=== PATIENT | female | born 1960 | race Caucasian/White ===

== ENCOUNTER → 2016-11-07 | Outpatient (CLI) | payer BC ==
[~2016-11-07] MED LIST: GUMMI BEAR MULTIVITA PO; IBUPROFEN400 MG PO; MAXZIDE-25 PO; METFORMIN HCL500 MG PO; METOPROLOL SUCC25 MG PO; NITROSTAT0.3 MG SL; OMEPRAZOLE20 M1 PO; PERCOCET1 TA1 PO; PROAIR HFA IN; VISTARIL25 MG PO
--- NOTE | 2016-11-07 17:38 | DIAGNOSTIC IMAGING REPORT ---
PROCEDURE: XR CHEST 2 VIEW INDICATION: BRONCHITIS TECHNIQUE: PA and lateral views. COMPARISON: Chest 07/17/2016 and 01/03/2016 FINDINGS: Lungs are clear. Heart and mediastinum are normal. Thorax is normal. IMPRESSION: 1. Negative chest.
== END ==
LOC: XR SRH 17:21
DX: J40 Bronchitis, not specified as acute or chronic (principal)

== ENCOUNTER 2017-03-24 13:24 | Emergency (ER) | payer BC ==
--- NOTE | 2017-03-24 15:25 | DIAGNOSTIC IMAGING REPORT ---
PROCEDURE: CT ABD/PELVIS WITH CONTRAST CLINICAL INDICATION: ABDOMINAL PAIN TECHNIQUE: 125 ml. of Isovue 300 were injected intravenously and axial images were obtained of the entire abdomen and pelvis with sagittal and coronal reformations. COMPARISON: CT abdomen/pelvis 09/25/2016. FINDINGS: ABDOMEN: Lung base are clear. Heart size is normal. Hepatic steatosis. Cholecystectomy. Pancreas, spleen and adrenal glands are normal. Small bilateral renal cysts. Mild atherosclerosis. Normal appendix. Nonspecific bowel gas pattern. PELVIS: Mild mid sigmoid diverticulosis with wall thickening, mild adjacent inflammatory changes and small amount of free fluid consistent with diverticulitis. There is no abscess or free air. Hysterectomy. Adnexa and bladder are normal. Mild degenerative changes of the spine. IMPRESSION: 1. Sigmoid diverticulitis. No abscess or free air. 2. Hepatic steatosis 3. Cholecystectomy and hysterectomy E TRIP Hathaway. All CT scans at this facility use dose modulation, iterative reconstruction, and/or weight-based dosing when appropriate to reduce radiation dose to as low as reasonably achievable.
--- NOTE | 2017-03-24 15:35 | ED ORDER SUMMARY ---
..... Patient: SANGITA BEAVERS OrderSheet [facility] VisitID: [id number] [place] [address] 56y, F Registration Date/Time: 03/24/2017 ORDER SHEET Weight: 99.7 kg (stated) Allergies: Amoxicillin, Codeine, Latex, Levaquin, Novocain, Reglan, Simvastatin, Lyrica GENERAL ORDERS: UA-Culture if indicated Urgent (13:52 03/24/2017 Roberto R.N. per protocol) (Ack 13:53 PWeiler ER Tech1) (14:04 CHernandez R.N.) CBC w Diff Urgent (13:54 03/24/2017 EKoroleva P.A.-C) (Ack 13:55 PWeiler ER Tech1) (14:04 CHernandez R.N.) CMP Urgent (13:54 03/24/2017 EKoroleva P.A.-C) (Ack 13:55 PWeiler ER Tech1) (14:04 CHernandez R.N.) Lipase Urgent (13:54 03/24/2017 EKoroleva P.A.-C) (Ack 13:55 PWeiler ER Tech1) (14:04 CHernandez R.N.) CT Abd/Pel w Cont (Yes) (see lab) Urgent (14:35 03/24/2017 EKoroleva P.A.-C) (Ack 14:55 PWeiler ER Tech1) (14:59 PWeiler ER Tech1) MEDICATION ORDERS: Metronidazole PO 500 mg (NOW) (15:25 03/24/2017 EKoroleva P.A.-C) (Ack 15:27 CHernandez R.N.) (15:32 CHernandez R.N.) IV FLUIDS: IV NS : initial bolus 1000 mL (1000 mL/hr), then 1000 mL/hr for X1 (NOW); Piero (13:53 03/24/2017 EKoroleva P.A.-C) (Ack 14:09 CHernandez R.N.) (14:18 CHernandez R.N.) Zofran IV 8 mg (NOW) (13:53 03/24/2017 Dino Rapp) ([facility] 14:09 Marla Arceo) (14:20 Marla Arceo) ORDER SHEET NOTES: [Electronically signed by Elba Hathaway P.A.-C (15:46 03/24/2017)] [Electronically signed by Roderick Shine R.N. (15:53 03/24/2017)] [Electronically locked/signed by Roderick Shine R.N. (15:53 03/24/2017)]
--- NOTE | 2017-03-24 15:35 | ED NURSING NOTES ---
Clinical Report - Nurses [facility] [address] [place] [address] 03/24/2017 13:25 Patient: SANGITA BEAVERS TRIAGE Triage time 13:43 Mar 24 2017. Acuity: LEVEL 3. Chief Complaint: ABDOMINAL PAIN. 13:43 03/24/17. 13:43 03/24/17. Alert. ( Pt states she went to the walk in clinic on Friday, pt dx with UTI, started on abx. Presents today as pain is getting worse.). SEPSIS SCREEN: Sepsis Screen. Negative (no infection suspected/documented). --13:51 Rodo Willingham R.N. 13:44 03/24/17. BP: 147/56. HR: 82. RR: 18. O2 saturation: 99% on room air. Temp: 98.2 F (oral). Pain level now: 04/07. --13:51 Rodo Willingham R.N. Weight: 99.7 kg stated. Height/Length: 61 inches Per Patient. BMI: 41.6. --13:47 Rodo Willingham R.N. Medications Albuterol Sulfate Inhalation (Nebulization Solution (2.5 MG/3ML) 0.083%) 1 unit dose, PRN. --13:50 Rodo Willingham R.N. Combivent Respimat Inhalation, PRN. MetFORMIN HCl Oral 500 mg, daily. Metoprolol Tartrate Oral 50 mg, daiily. Triamterene-HCTZ Oral (Tablet 37.5-25 mg) 1 tablet, daily. --13:50 Rodo Willingham R.N. Sulfamethoxazole-TMP DS Oral (Tablet 800-160 mg) 1 tablet, two times a day. --13:50 Rodo Willingham R.N. Nitrostat Sublingual 0.4 mg, as needed. --13:55 Rodo Willingham R.N. The following entry was struck by Rodo Willingham R.N., 13:54 (03/24/17) Reason - other. <<STRICKEN ENTRY-- Nitroglycerin Sublingual 0.4 mg, PRN. --13:50 Rodo Willingham R.N. --END STRIKE>> The following entry was struck and corrected by Rodo Willingham R.N., 13:53 (03/24/17) Reason for correction - other(correction). <<STRICKEN ENTRY-- Metoprolol Tartrate Oral 50 mg. --13:50 Rodo Willingham R.N. --END STRIKE>>. Medication/allergy information source: the patient. --13:51 Rodo Willingham R.N. Allergies Amoxicillin. ("breathing problems") Codeine. Latex. Levaquin. Novocain. Reglan.(hives) (body rash, anxiety) --13:48 Rodo Willingham R.N. Simvastatin. --13:56 Rodo Willingham R.N. Lyrica. --13:56 Rodo Willingham R.N. The following entry was struck and corrected by Rodo Willingham R.N., 13:56 (03/24/17) Reason for correction - other(correction). <<STRICKEN ENTRY-- Reglan. --13:48 Rodo Willingham R.N. --END STRIKE>>. History Arrived by private vehicle. Historian: patient. Primary physician (MISBAH). 13:43 03/24/17. ( Friday). No constipation. Treatment [employer]: (Sulfameth [id number]). PAST MEDICAL HX: Immunizations not up to date. SOCIAL HX: Never smoker. No alcohol use or drug use. No recent travel. No infectious disease exposure. No known contact with a sick individual. ABUSE ASSESSMENT: No report of abuse. FALL RISK ASSESSMENT: Fall risk assessment completed. No fall risk identified. NUTRITIONAL RISK ASSESSMENT: The nutritional risk assessment revealed no deficiencies. FUNCTIONAL ASSESSMENT: Functional assessment: no impairments noted. LEARNING NEEDS ASSESSMENT: The learning needs assessment revealed no barriers. SKIN INTEGRITY ASSESSMENT: Skin integrity risk assessment completed. No skin integrity risk identified. --13:51 Rodo Willingham R.N. PROBLEMS: Gastroenteritis. Diverticulitis. Endometriosis. Diabetes Mellitus Type 2. Asthma. Angina. --13:51 Rodo Willingham R.N. ADDITIONAL SURGERIES: Hysterectomy. Previous Abdominal Surgery. --13:51 Rodo Willingham R.N. Assessment 13:43 03/24/17. --13:51 Rodo Willingham R.N. Interventions 13:43 03/24/17. 13:43 03/24/17. ID and allergy band on patient. To treatment room. --13:51 Rodo Willingham R.N. PHYSICAL ASSESSMENT 13:43 03/24/17. Ambulatory to room. GENERAL / NEURO / PSYCH: Alert. Oriented X 4. Appears in pain. RESPIRATORY: Respirations not labored. CVS: Capillary refill less than 2 seconds. SKIN: Skin is warm and dry. --13:51 Rodo Willingham R.N. Ambulatory to room. GENERAL / NEURO / PSYCH: Alert. Oriented X 4. Appears in no acute distress. HEENT: Mucous membranes are pink. RESPIRATORY: Respirations not labored. Breath sounds within normal limits. CVS: Capillary refill less than 2 seconds. GI / : The patient has had nausea. Obesity. Abdomen soft. Abdominal tenderness in the lower abdomen. SKIN: Skin is warm and dry. --14:07 Roderick Shine R.N. NURSING PROGRESS NOTES 13:51 03/24/17. The plan of care for this patient has been created. Patient gowned. Head of bed elevated. Two patient identifiers checked. Call light placed in reach. Side rails up x 2. Bed placed in lowest position. Brakes of bed on. Patient ready for evaluation- chart flagged and notification provided. --13:51 Rodo Willingham R.N. 13:52 03/24/17. Patient ID band checked for patient name and birthdate. Clean catch urine collected with return of yellow-colored urine; sample sent to lab for urinalysis and culture. Specimen labeled in the presence of the patient. --13:52 Rodo Willingham R.N. 14:02 03/24/2017 Site #1 started via IV in the left antecubital space with an 20g angiocath; one attempt. Blood drawn: rainbow set. Labeled in the presence of the patient and sent to the lab. Saline lock flushed with 10 mL saline. --14:07 Roderick Shine R.N. 14:13 03/24/2017 Started IV Fluids IV NS (Saline); bolus of 1000 mL over 1 hour(s) via site #1 via IV pump. Allergies verified and confirmed 5 rights. IV patency established. IV site checked: no pain, redness, or swelling. IV flushed thoroughly pre- and post-medication administration. --14:18 Roderick Shine R.N. 14:20 03/24/2017 Zofran (Ondansetron HCl) IVP 8 mg given over 3 minute(s) via site #1. Allergies verified and confirmed 5 rights. IV patency established. IV site checked: no pain, redness, or swelling. IV flushed thoroughly pre- and post-medication administration. IVP given by RN. --14:20 Roderick Shine R.N. 15:20 03/24/17. BP: 113/47. HR: 82. RR: 16. O2 saturation: 100%. --15:22 Roderick Shine R.N. Reassessment after fluids administered. She is calm. Overall patient status- she states feels better. GI / : Abdomen soft. Abdominal tenderness in the lower abdomen. Bowel sounds within normal limits. SKIN: Skin is warm and dry. Skin color within normal limits. --15:22 Roderick Shine R.N. 15:28 03/24/2017 IV Fluids IV NS Discontinued: bag #1 infused. Total amount infused: 1000 mL. IV patency established. IV site checked: no pain, redness, or swelling. IV flushed thoroughly. --15:28 Roderick Shine R.N. 15:29 03/24/2017 Started bag #2 1000 mL IV Fluids IV NS (Saline); at 1000 mL/hr over 1 hour(s) via site #1 via IV pump. Allergies verified and confirmed 5 rights. IV patency established. IV site checked: no pain, redness, or swelling. IV flushed thoroughly pre- and post-medication administration. --15:29 Roderick Shine R.N. 15:32 03/24/2017 Metronidazole PO Tablets 500 mg given. Allergies verified and confirmed 5 rights. --15:32 Roderick Shine R.N. 15:44 03/24/2017 IV Fluids IV NS Discontinued: bag #2 STOPPED upon discharge. Total amount infused: 100 mL. IV patency established. IV site checked: no pain, redness, or swelling. IV flushed thoroughly. --15:49 Roderick Shine R.N. 15:49 03/24/2017 Site #1 removed upon discharge. Pressure dressing applied. --15:49 Roderick Shine R.N. DISPOSITION / DISCHARGE Condition at departure: improved. No learning barriers present. Discharge instructions provided and reviewed with the patient. Reviewed medication(s) side effects, precautions, dosing and course information. Prescription(s) given to the patient. Reviewed referral to a primary care physician for followup. Work note given. Patient verbalized understanding. Written instructions provided in [place]. The patient was discharged home. She left the Emergency Department ambulatory and via private vehicle. Patient driving. --15:53 Roderick Shine R.N. 15:48 03/24/17. BP: 115/72. HR: 83. RR: 15. O2 saturation: 100%. Temp: 98.1 F (oral). Pain level now: 01/06. --15:53 Roderick Shine R.N. Departure time: 15:53. --15:53 Roderick Shine R.N. Locked/Released at 03/24/2017 15:53 by Roderick Shine R.N.
--- NOTE | 2017-03-24 15:35 | ED CLINICAL REPORT ---
Clinical Report - Physicians/Mid Levels [facility] [address] [place] [address] 03/24/2017 13:25 Patient: SANGITA BEAVERS Time Seen: 1400Jun 2016. Arrived- By private vehicle. Historian- patient. HISTORY OF PRESENT ILLNESS Chief Complaint: ABDOMINAL PAIN. This started 5 days. (Patient presents abdominal pain in the last 5 days, some dysuria, was taking O's occasional [id number], was seen of the 10 minute clinic and started on Bactrim, her pain has persisted. Denies fevers or chills. Denies any constipation or diarrhea. Denies any Flank pain. Patient denies any emesis.). REVIEW OF SYSTEMS No constipation, black stools, difficulty with urination, headache or chest pain. All systems otherwise negative, except as recorded above. PAST HISTORY Problems: Gastroenteritis. Endometriosis. Hypertension. Diabetes Mellitus Type 2. Asthma. Angina. Additional Surgeries: Hysterectomy. Previous Abdominal Surgery. Medications: Nitrostat Sublingual 0.4 mg, as needed. Sulfamethoxazole-TMP DS Oral (Tablet 800-160 mg) 1 tablet, two times a day. Combivent Respimat Inhalation, PRN. MetFORMIN HCl Oral 500 mg, daily. Metoprolol Tartrate Oral 50 mg, daiily. Triamterene-HCTZ Oral (Tablet 37.5-25 mg) 1 tablet, daily. Albuterol Sulfate Inhalation (Nebulization Solution (2.5 MG/3ML) 0.083%) 1 unit dose, PRN. Allergies: Amoxicillin. ("breathing problems") Codeine. Latex. Levaquin. Lyrica. Novocain. Reglan.(hives) (body rash, anxiety) Simvastatin. ADDITIONAL NOTES The nursing notes have been reviewed. PHYSICAL EXAM Vital Signs: 03/24/2017 13:44 BP: 147/56. HR: 82. RR: 18. O2 saturation: 99%. Temp: 98.2 F. Pain level now: 7/10. Appearance: Alert. Eyes: Eyes normal inspection. ENT: Ears normal. Nose normal. No pharyngeal erythema. Neck: No lymphadenopathy or thyromegaly. CVS: Heart sounds normal. Respiratory: No respiratory distress. Breath sounds normal. No decreased air movement. Abdomen: Tenderness in the suprapubic area. No organomegaly. No mass. No obesity. Back: Normal inspection. No CVA tenderness. Skin: Skin warm. Neuro: Oriented X 3. LABS, X-RAYS, AND EKG Abdominal CT: IMPRESSION: 1. Sigmoid diverticulitis. No abscess or free air. 2. Hepatic steatosis 3. Cholecystectomy and hysterectomy E TRIP Hathaway. All CT scans at this facility use dose modulation, iterative reconstruction, and/or weight-based dosing when appropriate to reduce radiation dose to as low as reasonably achievable. Electronically Final signed by:Matthew Oviedo MD 03/24/2017 3:24:42 PM. Laboratory Tests: UA-Culture if indicated: (LUZ MARIA: 03/24/2017 13:48) ( [facility] 03/24/2017 14:17) Final results Test Result Flag Units (Reference) URINE COLOR YELLOW URINE APPEARANCE CLEAR URINE GLUCOSE NEGATIVE (NEGATIVE) URINE BILIRUBIN NEGATIVE (NEGATIVE) URINE KETONE NEGATIVE (NEGATIVE) URINE SPECIFIC GRAVITY 1.020 (1.010-1.030) URINE PH 7.0 (5.0-8.0) URINE PROTEIN NEGATIVE (NEGATIVE) URINE UROBILINOGEN 0.2 EU/dL (0.2-1.0) URINE NITRITE NEGATIVE (NEGATIVE) URINE BLOOD NEGATIVE (NEGATIVE) URINE LEUK ESTERASE NEGATIVE (NEGATIVE) URINE RBC NONE SEEN rbc/hpf (0-1) URINE WBC RARE wbc/hpf (0-1) URINE EPITHELIAL CELLS 0-1 EPI/hpf (0-5) URINE BACTERIA NONE SEEN (NONE SEEN) URINE COMMENT CULT NOT INDICATED URINE CULTURES ARE SET-UP BASED ON THE FOLLOWING CRITERIA:POSITIVE NITRITEPOSITIVE LEUKOCYTE ESTERASEGREATER THAN 10 WHITE BLOOD CELLSMODERATE (2+) OR GREATER BACTERIA CBC w Diff: (LUZ MARIA: 03/24/2017 14:00) ( [facility] 03/24/2017 14:10) Final results Test Result Flag Units (Reference) WHITE BLOOD COUNT 15.7 H K/uL (4.5-11.5) RED BLOOD COUNT 4.48 M/uL (4.00-5.20) HEMOGLOBIN 11.6 L gm/dL (12.0-16.0) HEMATOCRIT 34.8 L % (36.0-46.0) MEAN CELL VOLUME 78 L fL (80-100) MEAN CORPUSCULAR HGB 26 pg (26-34) MEAN CORPUSCULAR HGB CONC 33 g/dL (31-37) RED CELL DISTRIBUTION WIDTH 14.2 % (11.6-14.8) PLATELET COUNT 282 K/uL (150-400) NEUTROPHIL % 80.8 H % (50-75) LYMPH % 13.9 L % (25-40) MONO % 4.5 % (3-14) EOSINOPHIL % 0.5 % (0-4) BASOPHIL % 0.3 % (0-2) CMP: (LUZ MARIA: 03/24/2017 14:00) ( MsgRcvd 03/24/2017 14:28) Final results Test Result Flag Units (Reference) GLUCOSE 106 mg/dL (70-110) BUN 11 mg/dL (7-18) CREATININE 0.8 mg/dL (0.6-1.3) Estimated GFR >60 mL/min Estimated GFR- >60 mL/min Note: Persistent reduction over 3 months in eGFR<60 mL/min/1.73 m2 defines CKD. Patients with eGFR values>=60 mL/min/1.73 m2 may also have CKD if evidence ofpersistent proteinuria. Additional information may be foundat www.kidney.org. SODIUM 138 mmol/L (136-145) POTASSIUM 3.3 L mmol/L (3.5-5.1) CHLORIDE 99 mmol/L (98-107) CARBON DIOXIDE 28 mmol/L (21-32) CALCIUM 8.8 mg/dL (8.5-10.1) TOTAL PROTEIN 7.3 g/dL (6.4-8.2) ALBUMIN 3.9 g/dL (3.3-5.0) BILIRUBIN, TOTAL 0.4 mg/dL (0.0-1.0) ALKALINE PHOSPHATASE 100 U/L (46-116) AST (SGOT) 22 U/L (15-37) ALT (SGPT) 40 U/L (12-78) LIPASE 95 U/L (73-393) . PROGRESS AND PROCEDURES Course of Care: Afebrile patient in no distress, with suprapubic tenderness and pain, with leukocytosis, CT consistent with diverticulitis, with no signs of free air. Patient will continue Bactrim, as well as addition of metronidazole. Return precautions for patient. In addition patient will was hold her metformin for 48 hours, she had contrast. 03/24/2017 15:20 BP: 113/47. HR: 82. RR: 16. O2 saturation: 100%. Patient is stable. Physical exam findings are improved. Symptoms better. Patient/family counseled. Differential Diagnosis: I considered gastritis, gastroenteritis, acute appendicitis, biliary colic, splenic injury, splenic rupture, splenic infarction, splenic abscess, intraabdominal abscess, ascites, urinary tract infection, cystitis, prostatitis and ovarian torsion as a possible cause of abdominal pain in this patient. This is a partial list of diagnoses considered. Disposition: Discharged. CLINICAL IMPRESSION Acute diverticulitis. INSTRUCTIONS Drink plenty of fluids. (continue taking Bactrim, in addition start metronidazole, follow up with your dr in 2-3 days). Prescription Medications: Hydrocodone/APAP 5mg / 325mg: take 1 orally every 6 hours as needed for pain. Dispense twelve (12). No refill. Metronidazole 500 mg: Take 1 tablet orally as a single dose every 8 hours for 10 days. No refill Follow-up: Follow up with your doctor in three. (Electronically signed by Elba Hathaway P.A.-C 03/24/2017 15:46)
--- NOTE | 2017-03-24 15:35 | ED ORDER SUMMARY ---
..... Patient: SANGITA BEAVERS OrderSheet [facility] VisitID: [id number] [place] [address] 56y, F Registration Date/Time: 03/24/2017 ORDER SHEET Weight: 99.7 kg (stated) Allergies: Amoxicillin, Codeine, Latex, Levaquin, Novocain, Reglan, Simvastatin, Lyrica GENERAL ORDERS: UA-Culture if indicated Urgent (13:52 03/24/2017 Roberto R.N. per protocol) (Ack 13:53 PWeiler ER Tech1) (14:04 CHernandez R.N.) CBC w Diff Urgent (13:54 03/24/2017 EKoroleva P.A.-C) (Ack 13:55 PWeiler ER Tech1) (14:04 CHernandez R.N.) CMP Urgent (13:54 03/24/2017 EKoroleva P.A.-C) (Ack 13:55 PWeiler ER Tech1) (14:04 CHernandez R.N.) Lipase Urgent (13:54 03/24/2017 EKoroleva P.A.-C) (Ack 13:55 PWeiler ER Tech1) (14:04 CHernandez R.N.) CT Abd/Pel w Cont (Yes) (see lab) Urgent (14:35 03/24/2017 EKoroleva P.A.-C) (Ack 14:55 PWeiler ER Tech1) (14:59 PWeiler ER Tech1) MEDICATION ORDERS: Metronidazole PO 500 mg (NOW) (15:25 03/24/2017 EKoroleva P.A.-C) (Ack 15:27 CHernandez R.N.) (15:32 CHernandez R.N.) IV FLUIDS: IV NS : initial bolus 1000 mL (1000 mL/hr), then 1000 mL/hr for X1 (NOW); Piero (13:53 03/24/2017 EKoroleva P.A.-C) (Ack 14:09 CHernandez R.N.) (14:18 CHernandez R.N.) Zofran IV 8 mg (NOW) (13:53 03/24/2017 Dino Rapp) ([facility] 14:09 Marla Arceo) (14:20 Marla Arceo) ORDER SHEET NOTES: [Electronically signed by Elba Hathaway P.A.-C (15:46 03/24/2017)] [Electronically signed by Roderick Shine R.N. (15:53 03/24/2017)] [Electronically locked/signed by Roderick Shine R.N. (15:53 03/24/2017)]
--- NOTE | 2017-03-24 15:53 | ED DISCHARGE INSTRUCTIONS ---
Patient: SANGITA BEAVERS General Instructions [facility] VisitID: [id number] [place] [address] 56y, F Registration Date/Time: 03/24/2017 Acute diverticulitis. INSTRUCTIONS Drink plenty of fluids. (continue taking Bactrim, in addition start metronidazole, follow up with your dr in 2-3 days). Prescription Medications: Hydrocodone/APAP 5mg / 325mg: take 1 orally every 6 hours as needed for pain. Dispense twelve (12). No refill. Metronidazole 500 mg: Take 1 tablet orally as a single dose every 8 hours for 10 days. No refill Follow-up: Follow up with your doctor in three. ADDITIONAL INFORMATION Diverticulitis Some people develop pouches along the wall of the colon as they get older. The pouches,called diverticuli, usually cause no symptoms. If the pouches become blocked, an infection may occur known as diverticulitis. This causes lower abdominal pain and fever. If not treated, it can become a serious condition, causing an abscess to form inside the pouch. The abscess may block the instestinal tract even or rupture, spreading infection throughout the abdomen. When treatment is started early, oral antibiotics alone may be enough to cure diverticulitis. This method is tried first. However, if you do not improve or if your condition worsens while you are trying oral antibiotics, it will be necessary to admit you to the hospital for IV antibiotics. Severe cases may require surgery. Home care The following guidelines will help you care for your diverticulitis at home: During the acute illness, rest and follow a low-fiber diet: Foods to Include: flake cereal, mashed potatoes, pancakes, waffles, pasta, white bread, rice, applesauce, bananas, eggs, meat, fish, poultry, tofu, cooked vegetables. Take antibiotics exactly as directed. Do not miss any doses or stop taking the medication, even if you feel better. Monitor your temperature and report any rising temperature to your doctor. Preventing future attacks Once you have had an episode of diverticulitis, you are at risk of having a recurrence. After you have recovered from this episode, you may be able to reduce your risk by eating a high-fiber diet (2035 gm/day of fiber). This cleans out the colon pouches that already exist and prevent new ones from forming. Foods high in fiber includes fresh fruits and edible peelings, raw or lightly cooked vegetables, whole grain cereals and breads, dried beans and peas, bran. Follow-up care Follow up with your doctor as advised or sooner if you are not improving in the nexttwo days. When to seek medical care Get prompt medical attention if any of the following occur: Fever of 100.4F (38C) or higher, or as directed by your health care provider Repeated vomiting or swelling of the abdomen Weakness, dizziness, light-headedness Increasing abdominal pain that becomes severe or spreads to your back Pain that moves to the right lower abdomen Rectal bleeding (red, black or maroon color of the stools) Unexpected vaginal bleeding [place] Diet A bland diet is used for patients with an upset stomach. It consists of foods that are mild and easy to digest. It is better to eat small frequent meals rather than three large meals a day. BEVERAGES OK: Fruit juices, non-caffeinated teas and coffee, non-carbonated christy AVOID: Carbonated beverage, caffeinated tea and coffee, all alcoholic beverages BREAD OK: Refined white, wheat or rye bread, ruben or soda crackers, Brittnee toast, plain rolls, bagels AVOID: Whole-grain bread CEREAL OK: Refined cereals: cooked or ready to eat AVOID: Whole grain cereals and granola, or those containing bran, seeds or nuts DESSERTS OK: Peanut butter and all others except those to "avoid" AVOID: Chocolate, cocoa, coconut, popcorn, nuts, seeds, jam, marmalade FRUITS OK: Canned, cooked, frozen or fresh fruits without seeds or tough skin AVOID: Olives, skin and seeds of fruit MEATS OK: All fresh or preserved meat, fish and fowl AVOID: Any that are prepared with those spices to "avoid" CHEESE & EGGS OK: Eggs, cottage cheese, cream cheese, other cheeses AVOID: All cheeses made with those spices to "avoid" POTATOES & PASTA OK: Potato, rice, macaroni, noodles, spaghetti AVOID: None SOUPS OK: All soups without heavy seasoning AVOID: Soups made with those spices to "avoid" VEGETABLES OK: Canned, cooked, fresh or frozen mildly flavored vegetables without seeds, skins or coarse fiber AVOID: Vegetables prepared with those spices to "avoid"; skin and seeds of vegetables and those with coarse fiber SPICES OK: Salt, lemon and [place] juice, vinegar, all extracts, maycol, cinnamon, thyme, mace, allspice, paprika AVOID: Clayton powder, cloves, pepper, seed spices, garlic, gravy pickles, highly seasoned salad dressings Clear Liquid Diet Clear liquids are any liquid that you can see through as well as those that are very easy to digest. This is used while the body is recovering from irritation or infection of the stomach or intestinal tract. It may also be used before special procedures or surgery. This diet is to be used no more than three days. You may include the following items. Adults Adults should drink a total of 23 quarts of liquid per day. It may be easier to drink small frequent servings rather than a few large ones. Liquids can include: Fruit juices.Strained orange juice or lemonade (no pulp), apple, grape and cranberry juice, clear fruit drinks, sports drinks Beverages.Sport drinks, sodas, mineral water (plain or flavored), tea, black coffee, liquid gelatin (add twice the recommended amount of water) Soups.Clear broth, consomm, bouillon Desserts.Plain gelatin, popsicles, fruit juice bars Children Over 2 years old The following liquids are acceptable for children over age 2: Fruit juices.Strained orange juice or lemonade (no pulp), apple, grape and cranberry juice, clear fruit drinks Beverages. Sports drinks, sodas, mineral water (plain or flavored), tea, liquid gelatin (add twice the recommended amount of water) Soups. Clear broth, consomm, bouillon Desserts. Plain gelatin, popsicles, fruit juice bars Children under 2 years old Oral rehydration fluids such are available at drug stores and most grocery stores without a prescription. Hydrocodone Bitartrate, Acetaminophen Oral tablet What is this medicine? ACETAMINOPHEN; HYDROCODONE (a set a KENNY edgardo fen; robert droe KOE done) is a pain reliever. It is used to treat mild to moderate pain. How should I use this medicine? Take this medicine by mouth. Swallow it with a full glass of water. Follow the directions on the prescription label. If the medicine upsets your stomach, take the medicine with food or milk. Do not take more than you are told to take. Talk to your knitted cloth examiner regarding the use of this medicine in children. This medicine is not approved for use in children. What side effects may I notice from receiving this medicine? Side effects that you should report to your doctor or health career development consultant as soon as possible: allergic reactions like skin rash, itching or hives, swelling of the face, lips, or tongue breathing problems confusion feeling faint or lightheaded, falls stomach pain yellowing of the eyes or skin Side effects that usually do not require medical attention (report to your doctor or health career development consultant if they continue or are bothersome): nausea, vomiting stomach upset What may interact with this medicine? alcohol antihistamines isoniazid medicines for depression, anxiety, or psychotic disturbances medicines for sleep muscle relaxants naltrexone narcotic medicines (opiates) for pain phenobarbital ritonavir tramadol What if I miss a dose? If you miss a dose, take it as soon as you can. If it is almost time for your next dose, take only that dose. Do not take double or extra doses. Where should I keep my medicine? Keep out of the reach of children. This medicine can be abused. Keep your medicine in a safe place to protect it from theft. Do not share this medicine with anyone. Selling or giving away this medicine is dangerous and against the law. Store at room temperature between 15 and 30 degrees C (59 and 86 degrees F). Protect from light. Keep container tightly closed. Throw away any unused medicine after the expiration date. Discard unused medicine and used packaging carefully. Pets and children can be harmed if they find used or lost packages. What should I tell my health care provider before I take this medicine? They need to know if you have any of these conditions: brain tumor Crohn's disease, inflammatory bowel disease, or ulcerative colitis drink more than 3 alcohol-containing drinks per day drug abuse or addiction head injury heart or circulation problems kidney disease or problems going to the bathroom liver disease lung disease, asthma, or breathing problems an unusual or allergic reaction to acetaminophen, hydrocodone, other opioid analgesics, other medicines, foods, dyes, or preservatives or trying to get breast-feeding What should I watch for while using this medicine? Tell your doctor or health career development consultant if your pain does not go away, if it gets worse, or if you have new or a different type of pain. You may develop tolerance to the medicine. Tolerance means that you will need a higher dose of the medicine for pain relief. Tolerance is normal and is expected if you take the medicine for a long time. Do not suddenly stop taking your medicine because you may develop a severe reaction. Your body becomes used to the medicine. This does NOT mean you are addicted. Addiction is a behavior related to getting and using a drug for a non-medical reason. If you have pain, you have a medical reason to take pain medicine. Your doctor will tell you how much medicine to take. If your doctor wants you to stop the medicine, the dose will be slowly lowered over time to avoid any side effects. You may get drowsy or dizzy when you first start taking the medicine or change doses. Do not drive, use machinery, or do anything that may be dangerous until you know how the medicine affects you. Stand or sit up slowly. There are different types of narcotic medicines (opiates) for pain. If you take more than one type at the same time, you may have more side effects. Give your health care provider a list of all medicines you use. Your doctor will tell you how much medicine to take. Do not take more medicine than directed. Call emergency for help if you have problems breathing. The medicine will cause constipation. Try to have a bowel movement at least every 2 to 3 days. If you do not have a bowel movement for 3 days, call your doctor or health career development consultant. Too much acetaminophen can be very dangerous. Do not take Tylenol (acetaminophen) or medicines that contain acetaminophen with this medicine. Many non-prescription medicines contain acetaminophen. Always read the labels carefully. Metronidazole Oral tablet What is this medicine? METRONIDAZOLE (me troe NI da zole) is an antiinfective. It is used to treat certain kinds of bacterial and protozoal infections. It will not work for colds, flu, or other viral infections. How should I use this medicine? Take this medicine by mouth with a full glass of water. Follow the directions on the prescription label. Take your medicine at regular intervals. Do not take your medicine more often than directed. Take all of your medicine as directed even if you think you are better. Do not skip doses or stop your medicine early. Talk to your knitted cloth examiner regarding the use of this medicine in children. Special care may be needed. What side effects may I notice from receiving this medicine? Side effects that you should report to your doctor or health career development consultant as soon as possible: allergic reactions like skin rash or hives, swelling of the face, lips, or tongue confusion, clumsiness difficulty speaking discolored or sore mouth dizziness fever, infection numbness, tingling, pain or weakness in the hands or feet trouble passing urine or change in the amount of urine redness, blistering, peeling or loosening of the skin, including inside the mouth seizures unusually weak or tired vaginal irritation, dryness, or discharge Side effects that usually do not require medical attention (report to your doctor or health career development consultant if they continue or are bothersome): diarrhea headache irritability metallic taste nausea stomach pain or cramps trouble sleeping What may interact with this medicine? Do not take this medicine with any of the following medications: alcohol or any product that contains alcohol amprenavir oral solution cisapride disulfiram dofetilide dronedarone paclitaxel injection pimozide ritonavir oral solution sertraline oral solution sulfamethoxazole-trimethoprim injection thioridazine ziprasidone This medicine may also interact with the following medications: cimetidine lithium other medicines that prolong the QT interval (cause an abnormal heart rhythm) phenobarbital phenytoin warfarin What if I miss a dose? If you miss a dose, take it as soon as you can. If it is almost time for your next dose, take only that dose. Do not take double or extra doses. Where should I keep my medicine? Keep out of the reach of children. Store at room temperature below 25 degrees C (77 degrees F). Protect from light. Keep container tightly closed. Throw away any unused medicine after the expiration date. What should I tell my health care provider before I take this medicine? They need to know if you have any of these conditions: anemia or other blood disorders disease of the nervous system fungal or yeast infection if you drink alcohol containing drinks liver disease seizures an unusual or allergic reaction to metronidazole, or other medicines, foods, dyes, or preservatives or trying to get breast-feeding What should I watch for while using this medicine? Tell your doctor or health career development consultant if your symptoms do not improve or if they get worse. You may get drowsy or dizzy. Do not drive, use machinery, or do anything that needs mental alertness until you know how this medicine affects you. Do not stand or sit up quickly, especially if you are an older patient. This reduces the risk of dizzy or fainting spells. Avoid alcoholic drinks while you are taking this medicine and for three days afterward. Alcohol may make you feel dizzy, sick, or flushed. If you are being treated for a sexually transmitted disease, avoid sexual contact until you have finished your treatment. Your sexual partner may also need treatment. You have been given the following additional information: Diverticulitis Diet, [place] (Adult) Diet, Clear Liquid Hydrocodone Bitartrate, Acetaminophen Oral tablet Metronidazole Oral tablet (Electronically signed by Elba Hathaway P.A.-C 03/24/2017 15:46)
--- NOTE | 2017-03-24 15:53 | ED MAR SUMMARY ---
..... Medication Administration Record [facility] [address] [place] [address] Patient: SANGITA BEAVERS Visit ID: [id number] 56y, F Weight: 99.7 kg Height/Length: 61 in BMI: 41.6 ALLERGIES: Amoxicillin, Codeine, Latex, Levaquin, Novocain, Reglan, Lyrica, Simvastatin Start 14:13 03/24/2017 Roderick Shine R.N., Stop 15:28 03/24/2017 Roderick Shine R.N. Medication Administered: IV NS (SALINE), Dose: IV Fluids, Bolus: 1000 mL over 1 hour(s), Site: #1 left AC. Medication Ordered: IV NS : initial bolus 1000 mL (1000 mL/hr), then 1000 mL/hr for X1 (NOW); Piero. Given 14:20 03/24/2017 Roderick Shine R.N. Medication Administered: ZOFRAN [IVP] (ONDANSETRON HCL), Dose: 8 mg IVP over 3 minute(s), Site: #1 left AC. Medication Ordered: Zofran IV 8 mg (NOW). Start 15:29 03/24/2017 Roderick Shine R.N., Stop 15:44 03/24/2017 Roderick Shine R.N. Medication Administered: IV NS (SALINE), Dose: IV Fluids over 1 hour(s), Rate: 1000 mL/hr, Dispensed: 1000 mL bag, Site: #1 left AC. Medication Ordered: IV NS : initial bolus 1000 mL (1000 mL/hr), then 1000 mL/hr for X1 (NOW); Piero. Given 15:32 03/24/2017 Roderick Shine R.N. Medication Administered: METRONIDAZOLE [PO], Dose: 500 mg Tablets PO. Medication Ordered: Metronidazole PO 500 mg (NOW).
--- NOTE | 2017-03-24 15:53 | ED MED RECONCILIATION SUMMARY ---
Patient: SANGITA BEAVERS Medication Reconciliation Report [facility] VisitID: [id number] [address] [place] [address] 56y, F Registration Date/Time: 03/24/2017 Weight: 99.7 kg Height/Length: 61 in. BMI: 41.6 ALLERGIES: Amoxicillin, Codeine, Latex, Levaquin, Lyrica, Novocain, Reglan, Simvastatin The patient's Home Medications are listed below: THE FOLLOWING MEDICATIONS NEED TO BE RECONCILED: Albuterol Sulfate Inhalation ((2.5 MG/3ML) 0.083%) 1 unit dose, PRN Combivent Respimat Inhalation, PRN MetFORMIN HCl Oral 500 mg, daily Metoprolol Tartrate Oral 50 mg, daiily Nitrostat Sublingual 0.4 mg Sulfamethoxazole-TMP DS Oral (800-160 mg) 1 tablet, two times a day Triamterene-HCTZ Oral (37.5-25 mg) 1 tablet, daily The source(s) of the original Home Medication information: patient The following Medications were given to the patient in the Emergency Department: IV NS IV Fluids bolus 1000 mL over 1 hour(s), administered: 03/24/2017 2:13:00 PM Zofran [IVP] IVP 8 mg, administered: 03/24/2017 2:20:00 PM IV NS IV Fluids bolus 0, then 1000 mL/hr, administered: 03/24/2017 3:29:00 PM Metronidazole [PO] PO 500 mg, administered: 03/24/2017 3:32:00 PM The following Medications were prescribed to the patient: Hydrocodone/APAP 5mg / 325mg: take 1 orally every 6 hours as needed for pain. Dispense twelve (12). No refill. -- Elba Hathaway P.AKhalida-Colton Metronidazole 500 mg: Take 1 tablet orally as a single dose every 8 hours for 10 days. No refill -- Elba Hathaway, P.A.-C
--- NOTE | 2017-03-24 15:53 | ED MED RECONCILIATION SUMMARY ---
Patient: SANGITA BEAVERS Medication Reconciliation Report [facility] VisitID: [id number] [address] [place] [address] 56y, F Registration Date/Time: 03/24/2017 Weight: 99.7 kg Height/Length: 61 in. BMI: 41.6 ALLERGIES: Amoxicillin, Codeine, Latex, Levaquin, Lyrica, Novocain, Reglan, Simvastatin The patient's Home Medications are listed below: THE FOLLOWING MEDICATIONS NEED TO BE RECONCILED: Albuterol Sulfate Inhalation ((2.5 MG/3ML) 0.083%) 1 unit dose, PRN Combivent Respimat Inhalation, PRN MetFORMIN HCl Oral 500 mg, daily Metoprolol Tartrate Oral 50 mg, daiily Nitrostat Sublingual 0.4 mg Sulfamethoxazole-TMP DS Oral (800-160 mg) 1 tablet, two times a day Triamterene-HCTZ Oral (37.5-25 mg) 1 tablet, daily The source(s) of the original Home Medication information: patient The following Medications were given to the patient in the Emergency Department: IV NS IV Fluids bolus 1000 mL over 1 hour(s), administered: 03/24/2017 2:13:00 PM Zofran [IVP] IVP 8 mg, administered: 03/24/2017 2:20:00 PM IV NS IV Fluids bolus 0, then 1000 mL/hr, administered: 03/24/2017 3:29:00 PM Metronidazole [PO] PO 500 mg, administered: 03/24/2017 3:32:00 PM The following Medications were prescribed to the patient: Hydrocodone/APAP 5mg / 325mg: take 1 orally every 6 hours as needed for pain. Dispense twelve (12). No refill. -- Elba Hathaway P.AKhalida-Colton Metronidazole 500 mg: Take 1 tablet orally as a single dose every 8 hours for 10 days. No refill -- Elba Hathaway, P.A.-C
--- NOTE | 2017-03-24 15:53 | ED MAR SUMMARY ---
..... Medication Administration Record [facility] [address] [place] [address] Patient: SANGITA BEAVERS Visit ID: [id number] 56y, F Weight: 99.7 kg Height/Length: 61 in BMI: 41.6 ALLERGIES: Amoxicillin, Codeine, Latex, Levaquin, Novocain, Reglan, Lyrica, Simvastatin Start 14:13 03/24/2017 Roderick Shine R.N., Stop 15:28 03/24/2017 Roderick Shine R.N. Medication Administered: IV NS (SALINE), Dose: IV Fluids, Bolus: 1000 mL over 1 hour(s), Site: #1 left AC. Medication Ordered: IV NS : initial bolus 1000 mL (1000 mL/hr), then 1000 mL/hr for X1 (NOW); Piero. Given 14:20 03/24/2017 Roderick Shine R.N. Medication Administered: ZOFRAN [IVP] (ONDANSETRON HCL), Dose: 8 mg IVP over 3 minute(s), Site: #1 left AC. Medication Ordered: Zofran IV 8 mg (NOW). Start 15:29 03/24/2017 Roderick Shine R.N., Stop 15:44 03/24/2017 Roderick Shine R.N. Medication Administered: IV NS (SALINE), Dose: IV Fluids over 1 hour(s), Rate: 1000 mL/hr, Dispensed: 1000 mL bag, Site: #1 left AC. Medication Ordered: IV NS : initial bolus 1000 mL (1000 mL/hr), then 1000 mL/hr for X1 (NOW); Piero. Given 15:32 03/24/2017 Roderick Shine R.N. Medication Administered: METRONIDAZOLE [PO], Dose: 500 mg Tablets PO. Medication Ordered: Metronidazole PO 500 mg (NOW).
== END 2017-03-24 15:53 | disposition home or self-care (01) ==
LOC: ED SRH 13:24
DX: K57.92 Diverticulitis of intestine, part unspecified, without perforation or abscess without bleeding (principal); I10 Essential (primary) hypertension; E11.9 Type 2 diabetes mellitus without complications; J45.909 Unspecified asthma, uncomplicated; Z79.84 Long term (current) use of oral hypoglycemic drugs; Z79.2 Long term (current) use of antibiotics; Z79.899 Other long term (current) drug therapy; Z88.0 Allergy status to penicillin; Z88.1 Allergy status to other antibiotic agents; Z88.5 Allergy status to narcotic agent
CPT/HCPCS: 90004; 90100; 92235; 95059

== ENCOUNTER 2017-03-27 10:49 | Outpatient (CLI) | payer BC | END 2017-03-27 23:00 | disposition home or self-care (01) | LOC: LAB SRH 10:49 | DX: K57.92 Diverticulitis of intestine, part unspecified, without perforation or abscess without bleeding (principal) | CPT/HCPCS: 90074; 90100; 92031; 95059 ==